=== PATIENT | female | born 1940 | race Native Hawaiian/Other Pacific Islander ===

== ENCOUNTER 2024-03-27 08:27 | Outpatient (RCR) | payer MEDICARE, SELFPAY | END 2024-04-08 23:59 | disposition home or self-care (01) | LOC: SCTC 08:27 | PROVIDERS: PCP Family Medicine; Referring Provider Family Medicine; Visit Provider Nurse Practitioner Family | DX: C56.2 Malignant neoplasm of left ovary (principal); M81.0 Age-related osteoporosis without current pathological fracture; R10.10 Upper abdominal pain, unspecified | CPT/HCPCS: 99212; G0463 ==

== ENCOUNTER → 2024-04-21 | Outpatient (CLI) | payer MEDICARE, SELFPAY ==
--- NOTE | 2024-04-21 11:00 | XR_ITS ---
Examination: CT abdomen and pelvis without contrast. Coronal 3-D reconstructions. Sagittal 2-D reconstructions. Date and time of exam:April 21, 2024 1055 hours Comparison March 09, 2018 INDICATIONS: Intermittent left-sided abdominal pain beginning several weeks ago CTDI: vol (mGy): 8.33 DLP: (mGycm): 351 Technique: Axial images of the abdomen have been obtained, 3 mm slice thickness Intravenous contrast material has not been administered. Low dose protocols were performed. One or more of the following dose reduction techniques were used; automated exposure control, adjustment of the mA and/or KV according to patient size, use of iterative reconstruction technique. 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
== END | disposition home or self-care (01) ==
PROVIDERS: PCP Family Medicine; Referring Provider Nurse Practitioner Family; Visit Provider Nurse Practitioner Family
DX: N28.89 Other specified disorders of kidney and ureter (principal); K59.00 Constipation, unspecified; G95.20 Unspecified cord compression; C56.2 Malignant neoplasm of left ovary
CPT/HCPCS: 74176

== ENCOUNTER 2024-04-26 10:39 | Outpatient (RCR) | payer MEDICARE, SELFPAY | END 2024-05-09 23:59 | disposition home or self-care (01) | LOC: SCTC 10:39 | PROVIDERS: PCP Family Medicine; Referring Provider Family Medicine; Visit Provider Nurse Practitioner Family | DX: Z08 Encounter for follow-up examination after completed treatment for malignant neoplasm (principal); Z85.43 Personal history of malignant neoplasm of ovary; Z90.722 Acquired absence of ovaries, bilateral; Z90.710 Acquired absence of both cervix and uterus; M81.0 Age-related osteoporosis without current pathological fracture | CPT/HCPCS: 99212; G0463 ==

== ENCOUNTER 2024-07-28 03:52 | Emergency (ER) | payer MEDICARE, SELFPAY ==
[2024-07-28] VITALS (7 sets, daily range): BP systolic 133–205; BP diastolic 58–93; PULSE 50–70; RESP 17–20; TEMP 36.6–36.9; O2SAT 97–99; BMI 31.1
--- NOTE | 2024-07-28 03:53 | PD.EDNV ---
Nausea/Vomit./Diarrhea-RME/HPI General Chief complaint: Nausea/Vomiting/Diarrhea Stated complaint: VOMITING Time Seen by Provider: 07/28/24 04:00 Arrival date/time: 07/28/24 03:52 RME / HPI RME / HPI Narrative: This section includes all my notes and documentations, including HPI, PE, and ED course. Doug aBrba MD HPI: 84-year-old female here with abdominal pain and vomiting since last night. Had hysterectomy in the past. Was told she has hernia, uncertain about the location and details. No hematemesis or coffee-ground emesis. No rectal bleeding or tarry stools. No fever. No urinary symptoms. No other complaints. ROS: All negative except as documented in HPI. Physical Exam: General: Alert and oriented. In obvious pain. High BP noted. Eyes: Conjunctivae and lids clear. ENT: No nasal congestion. Neck: Supple. Heart: RRR. Lungs: No respiratory distress. Good air movement. No rhonchi, wheezing, rales. Abdomen: Soft with diffuse tenderness, difficult to localize. Decreased BS. No distention. No rebound or guarding. Legs: No clubbing, cyanosis, edema. Skin: Warm and dry. Neuro: Alert and oriented X 3. I reviewed all diagnostic test results. Blood tests and urine tests unremarkable. Abdominal CT pending. Treatment here included IV fluid and Zofran and morphine and clonidine. Some improvement noted. At 6 AM on 07/28/2024, the care of the patient was transferred to Dr Gaspar. Doug Barba MD Related Data Home Medications ?Medication ?Instructions ?Recorded ?Confirmed hydralazine 100 mg tablet 100 mg PO TID 05/19/19 08/15/21 labetalol 100 mg tablet 100 mg PO BID 05/19/19 08/15/21 losartan 50 mg tablet 50 mg PO QDAY 05/19/19 08/15/21 pioglitazone 30 mg tablet 30 mg PO QDAY 05/19/19 08/15/21 Previous Rx's ?Medication ?Instructions ?Recorded loratadine 10 mg capsule 10 mg PO QDAY PRN allergy symptoms 08/18/20 #30 caps prednisone 20 mg tablet See Taper PO QDAY #9 tabs 11/09/21 meloxicam 7.5 mg tablet 7.5 mg PO QDAY #10 tabs 01/12/22 Allergies Allergy/AdvReac Type Severity Reaction Status Date / Time No Known Allergies Allergy Verified 01/12/22 07:10 Review of Systems Review of Systems Systems Reviewed: All systems reviewed, normal except as documented Past Medical History Past Medical History NEUROLOGIC: Positive Neurological Disorders, Cerebrovascular Accident and Migraine; Negative Seizures CARDIAC: Positive Cardiac Disorders, Hypercholesterolemia and Hypertension; Negative Congestive Heart Failure RESPIRATORY: Negative Chronic Obstructive Pulmonary Disease (COPD) GASTROINTESTINAL: Negative Gastrointestinal Disorders GENITOURINARY: Negative Genitourinary Disorders or Renal Disease REPRODUCTIVE: Positive Breast Cancer and Previous Pregnancies MUSCULOSKELETAL: Positive Musculoskeletal Disorders and Arthritis ENT: Positive Cataracts ENDOCRINE: Positive Endocrine Disorders and Diabetes Mellitus Type 2; Negative Diabetes Mellitus Type 1 HEMATOLOGIC: Positive Anemia; Negative Blood Disorders OTHER HISTORY: Positive Hospitalization, Blood Transfusions, Blood Transfusion Reaction, Anesthesia Reactions, Chemotherapy, Cancer, Breast Cancer and Ovarian Cancer; Negative Autoimmune Disease, Shingles, Falls, Radiation Therapy, MRSA, Chicken Pox, Measles or Mumps Family History FAMILY HISTORY: Positive Family Cardiac Disorders, Family Cancer and Family Surgery; Negative Family Psychiatric Problems, Family Respiratory Disorders, Family Gastrointestinal Problems or Family Anesthesia Reaction Surgical History SURGICAL: Positive Abdominal Surgery, Joint Replacement and Hysterectomy; Negative Cardiac Surgery Social History SMOKING STATUS: Never smoker ED Exam Narrative Physical exam: As noted in HPI. Course Quality Measures none Orders Category Date Time Status Bedside COVID-19 Antigen Test NOW Care 07/28/24 03:55 Active Bedside Influenza A&B Antigen Test NOW Care 07/28/24 03:[address] Screening NOW Care 07/28/24 04:01 Active Saline [Insert IV] NOW Care 07/28/24 03:55 Active Straight [In and Out Catheter] X1 Care 07/28/24 03:[address] abdomen pelvis w con Stat Exams 07/28/24 04:01 Ordered Amylase Stat Lab 07/28/24 04:10 Results BMP [Basic Metabolic Panel] Stat Lab 07/28/24 04:10 Results CBC Stat Lab 07/28/24 04:10 Completed Free T4 (Free Thyroxine) Stat Lab 07/28/24 04:10 Results Lactate (Lactic Acid) Stat Lab 07/28/24 04:10 Completed Lipase Stat Lab 07/28/24 04:10 Results Liver Panel Stat Lab 07/28/24 04:10 Results Magnesium Stat Lab 07/28/24 04:10 Results TSH [Thyroid Stimulating Hormone] Stat Lab 07/28/24 04:10 Results UA, C/S IF [Urinalysis, C/S if Indicated] Stat Lab 07/28/24 04:35 Completed Morphine Inj Med 07/28/24 04:00 Discontinued 4 mg IVP X1 ONE Ondansetron Inj [Zofran Inj] Med 07/28/24 04:00 Discontinued 4 mg IV X1 ONE Sodium Chloride 0.9% 1000 ml [Ns] 1,000 ml Med 07/28/24 04:00 Discontinued IV 999 mls/hr cloNIDine HCL [Catapres] Med 07/28/24 04:29 Discontinued 0.3 mg PO X1 ONE Vital Signs Vital signs: Vital Signs Temperature 98.3 F 07/28/24 04:02 Pulse Rate 68 07/28/24 04:02 Respiratory Rate 18 07/28/24 04:02 Blood Pressure 196/93 H 07/28/24 04:02 Pulse Oximetry (%) 98 07/28/24 04:02 Oxygen Delivery Method Room Air 07/28/24 04:02 Nausea/Vomiting/Diarrhea Patient data External records reviewed:: [facility] previous records (Per chart review, patient was seen here on 01/12/22 for pain in the right calf.) Clinical information provided by:: patient and family Social determinants that could affect healthcare access:: none Patient has the following chronic illnesses:: HTN, HLD, DMII How is presenting disease/condition affected by chronic disease/condition?: uneffected by Evaluation data The following diagnostics were reviewed and interpreted by me:: lab results and radiology exam(s) Lab and/or radiology exams considered but not ordered:: none Interpretation Summary: Abdominal CT pending Medications / Prescriptions Medications / Prescriptions considered but not ordered:: none Medication administrations:: Medication Administration History Discontinued Medications Clonidine (Clonidine Hcl 0.1 Mg Tablet) 0.3 mg PO X1 ONE Stop: 07/28/24 04:30 Last Admin: 07/28/24 04:54 Dose: 0.3 mg Documented By: EE Sodium Chloride (Ns) 1,000 mls @ 999 mls/hr IV .Q1H1M ONE Stop: 07/28/24 05:00 Last Admin: 07/28/24 04:22 Dose: 999 mls/hr Documented By: EE Morphine Sulfate (Morphine Sulf Inj 10 Mg/Ml Vial) 4 mg IVP X1 ONE Stop: 07/28/24 04:01 Last Admin: 07/28/24 04:22 Dose: 4 mg Documented By: ISHMAEL Ondansetron HCl (Ondansetron Inj 2 Mg/Ml Inj 2 Ml) 4 mg IV X1 ONE; Protocol Stop: 07/28/24 04:01 Last Admin: 07/28/24 04:22 Dose: 4 mg Documented By: ISHMAEL IV fluid and Zofran and morphine and clonidine Consultations Consultation(s) initiated? (list below): No Diagnosis Nausea Differential Diagnosis: traveler's diarrhea, food poisoning, gastroenteritis, drug-induced nausea and vomiting, dehydration and other (Gastritis, GERD, PUD, biliary colic, SBO) Most likely diagnosis given after review of the tests above:: Diagnostics pending Admission Indicated Admission indicated?: not indicated Explain why admission is indicated or not indicated:: Diagnostics pending Admission Request Was there a request for admission?: No Disposition Plan Disposition Plan: other (specify) (Care of the patient was transferred to Dr Gaspar) Discharge Plan Prescriptions/Referrals Prescriptions/Med Rec: No Action losartan 50 mg Tablet 50 mg PO QDAY hydralazine 100 mg Tablet 100 mg PO TID labetalol 100 mg Tablet 100 mg PO BID pioglitazone 30 mg Tablet 30 mg PO QDAY loratadine 10 mg capsule 10 mg PO QDAY PRN (Reason: allergy symptoms) Qty: 30 0RF prednisone 20 mg tablet See Taper PO QDAY Qty: 9 0RF Taper: Prednisone Taper 20 mg DAILY for 2 Days and 0 Hour 10 mg DAILY for 2 Days and 0 Hour 5 mg DAILY for 7 Days and 0 Hour meloxicam 7.5 mg tablet 7.5 mg PO QDAY Qty: 10 0RF Problem List Clinical Impression: Abdominal pain Patient/Caregiver Discharge Instructions Print Language: Armenian
--- NOTE | 2024-07-28 04:01 | XR_ITS ---
Examination: CT abdomen with intravenous contrast CT pelvis with intravenous contrast 2-D coronal reconstructions 2-D sagittal reconstructions Date and time of exam:July 28, 2024 at 0607 hours Comparison April 21, 2024 INDICATIONS: Severe left-sided abdominal pain and vomiting today. CTDI: vol (mGy) 7.05 DLP: (mGycm) 335 Technique: Multiple axial sections of the abdomen and pelvis have been obtained. 64 slice high-resolution scanner used. 3 mm axial sections have been obtained, post intravenous injection 60 cc Isovue 370 2-D sagittal, coronal reconstructions obtained. Low dose protocols were performed. One or more of the following dose reduction techniques were used; automated exposure control, adjustment of the mA and/or KV according to patient size, use of iterative reconstruction technique. Findings: Moderate vascular congestion Liver is mildly irregular in contour No gallstones Spleen is not enlarged Gastric mucosa is thickened No pancreatic mass Supraumbilical hernia containing fat, axial image 63, measuring 26 mm Heavy abdominal aortic calcification no aneurysmal dilatation 12 mm umbilical hernia defect No bowel obstruction Normal appendix No diverticulitis Sutures in the rectal region Intact urinary bladder Severe osteopenia Severe chronic compression T12 vertebral body Advanced narrowing L4-L5 disc Advanced narrowing of the hip joints Bilateral inguinal hernias, the right inguinal hernia containing small bowel but no incarcerated bowel IMPRESSION: Moderate vascular congestion, suggest PA chest follow up Primary hepatocellular disease Gastritis pattern Supraumbilical fat-containing hernia 26 mm 12 mm fat-containing umbilical hernia Right inguinal hernia containing small bowel but no incarcerated bowel Normal appendix No bowel obstruction
[2024-07-28 04:20] LABS: Lactate (Lactic Acid) 0.9 mMol/L (0.4-2.0)
[2024-07-28] MEDS: ONDANSETRON INJ 2 MG/ML INJ 2 ML 4 MG IV (04:22)
[2024-07-28] MEDS: MORPHINE SULF INJ 10 MG/ML VIAL 4 MG IVP (04:22)
[2024-07-28] MEDS: SODIUM CHLORIDE 0.9% 1000 ML 1,000 ML 999 ML IV (04:22)
[2024-07-28 04:23] LABS: Basophils # (Auto) 0.1 Thou/mm3 (0.0-0.2); Basophils % (Auto) 1 % (0-2.5); Eosinophils # (Auto) 0.8 Thou/mm3 (0.0-0.5); Eosinophils % (Auto) 11 % (0-10); Hematocrit 35.3 % (36.0-46.0); Hemoglobin 11.8 g/dL (12.0-16.0); Immature Granulocytes % (Auto) 0 % (0-0); Immature Granulocytes Auto 0.02 Thou/mm3 (0.00-0.00); Lymphocytes # (Auto) 2.2 Thou/mm3 (1.0-4.8); Lymphocytes % (Auto) 31 % (10-50); Mean Corpuscular HGB Conc 33.4 g/dl (31.0-37.0); Mean Corpuscular Hemoglobin 28.7 pg (25.0-35.0); Mean Corpuscular Volume 86 fL (80-100); Monocytes # (Auto) 0.5 Thou/mm3 (0.0-0.8); Monocytes % (Auto) 7 % (0-12); Neutrophils # (Auto) 3.7 Thou/mm3 (1.8-7.7); Neutrophils % (Auto) 51 % (37-80); Nucleated Red Blood Cell % 0 /100 WBC (0); Platelet Count 193 Thou/mm3 (140-440); RDW Standard Deviation 46.1 fL (36.4-46.3); Red Blood Count 4.11 Miln/mm3 (4.00-5.20); White Blood Count 7.3 Thou/mm3 (3.6-11.0)
[2024-07-28 04:40] LABS: Alanine Aminotransferase 19 U/L (10-49); Alkaline Phosphatase 45 U/L (46-116); Amylase 185 U/L (30-118); Anion Gap 8 (7-16); Aspartate Amino Transferase 30 U/L (0-34); BUN/Creatinine Ratio 15 Ratio (12-20); Bilirubin,Direct < 0.1 mg/dL (0.0-0.3); Bilirubin,Total 0.4 mg/dL (0.3-1.2); Blood Urea Nitrogen 24 mg/dL (9-23); Calcium 9.3 mg/dL (8.3-10.6); Carbon Dioxide 27.3 mMol/L (20.0-31.0); Chloride 104 mMol/L (98-107); Creatinine (Component) 1.6 mg/dL (0.6-1.3); Estimated Creatinine Clearance 24.7 mL/min (>60); Glucose 128 mg/dL (74-106); Lipase 28 U/L (12-53); Magnesium 2.1 mg/dL (1.6-2.6); Osmolality,Calculated 283 (275-295); Potassium 4.3 mMol/L (3.4-5.1); Sodium 139 mMol/L (136-145); Total Protein 6.5 gm/dL (5.7-8.2); eGFR 32 See Note
[2024-07-28 04:54] LABS: Collection Type, Urine Clean Catch
[2024-07-28] MEDS: cloNIDine HCL 0.1 MG TABLET 0.3 MG PO (04:54)
[2024-07-28 05:03] LABS: Bilirubin,Urine Negative (Negative); Blood,Urine Negative (Negative); Clarity,Urine Clear (Clear/Hazy); Color,Urine Lt-Yellow (Lt Yel-Yel); Culture Indicated,Urine Not Indicated; Glucose, Urine Negative (Negative); Ketones,Urine Negative (Negative); Leukocyte Esterase,Urine Negative (Negative); Nitrite,Urine Negative (Negative); Protein,Urine 2+ (Neg - Trace); RBC,Urine 1 /hpf (0-3); Specific Gravity,Urine 1.017 (1.001-1.035); Squamous Epithelial Cell,Urine < 1 /hpf (0-5); Urobilinogen,Urine Negative mg/dL (0.0-1.0); WBC,Urine 2 /hpf (0-5)
[2024-07-28 05:25] LABS: Free T4 (Free Thyroxine) 1.38 ng/dL (0.89-1.76)
--- NOTE | 2024-07-28 05:59 | PD.EDADDENDU ---
Emergency Room Addendum Addendum Narrative: 0600: Care assumed from Dr. Barba, the previous shift emergency physician. Past medical, surgical, social and family history reviewed. Vitals and home medications reviewed. I will assume the care of the patient at this time. Please refer to the emergency department record for history and examination from initial visit.? Physical exam by me shows patient under no acute distress at this time. 1000: Patient remains clinically stable throughout the emergency department visit. Re-assessment at the time of disposition demonstrates that the patient is in no acute distress. We reviewed all the results, analysis, and treatment plans. Patient is amenable to discharge. Strict return precautions were outlined. Patient was discharged in stable condition. Diagnoses: Abdominal pain, umbilical hernia RADIOLOGY Procedure(s): CT abdomen pelvis w con Accession Number(s): [id number] cc: Cristopher Sherman MD; Doug Barba MD; Giorgi Brown MD~ Examination: CT abdomen with intravenous contrast CT pelvis with intravenous contrast 2-D coronal reconstructions 2-D sagittal reconstructions Date and time of exam:July 28, 2024 at 0607 hours Comparison April 21, 2024 INDICATIONS: Severe left-sided abdominal pain and vomiting today. CTDI: vol (mGy) 7.05 DLP: (mGycm) 335 Technique: Multiple axial sections of the abdomen and pelvis have been obtained. 64 slice high-resolution scanner used. 3 mm axial sections have been obtained, post intravenous injection 60 cc Isovue 370 2-D sagittal, coronal reconstructions obtained. Low dose protocols were performed. One or more of the following dose reduction techniques were used; automated exposure control, adjustment of the mA and/or KV according to patient size, use of iterative reconstruction technique. Findings: Moderate vascular congestion Liver is mildly irregular in contour No gallstones Spleen is not enlarged Gastric mucosa is thickened No pancreatic mass Supraumbilical hernia containing fat, axial image 63, measuring 26 mm Heavy abdominal aortic calcification no aneurysmal dilatation 12 mm umbilical hernia defect No bowel obstruction Normal appendix No diverticulitis Sutures in the rectal region Intact urinary bladder Severe osteopenia Severe chronic compression T12 vertebral body Advanced narrowing L4-L5 disc Advanced narrowing of the hip joints Bilateral inguinal hernias, the right inguinal hernia containing small bowel but no incarcerated bowel IMPRESSION: Moderate vascular congestion, suggest PA chest follow up Primary hepatocellular disease Gastritis pattern Supraumbilical fat-containing hernia 26 mm 12 mm fat-containing umbilical hernia Right inguinal hernia containing small bowel but no incarcerated bowel Normal appendix No bowel obstruction Dictated By: Giorgi Brown MD
--- NOTE | 2024-07-28 07:20 | PC.NURSE ---
Received report from Nasrin NORTON and assumed care of patient.
--- NOTE | 2024-07-28 07:51 | PC.NURSE ---
Answered patient call light. Patient requested sip of water for dry mouth. Complied with patients request and gave two sips of water which patient states she was fine with. Patient states current pain /10. ER provider informed and awaiting further orders.
== END 2024-07-28 10:25 | disposition home or self-care (01) ==
PROVIDERS: Emergency Medicine; Emergency Provider Emergency Medicine; PCP Family Medicine
DX: K42.9 Umbilical hernia without obstruction or gangrene (principal); R09.89 Other specified symptoms and signs involving the circulatory and respiratory systems; K76.9 Liver disease, unspecified; K40.90 Unilateral inguinal hernia, without obstruction or gangrene, not specified as recurrent
CPT/HCPCS: 36415; 74177; 80048; 80076; 81001; 82150; 83605; 83690; 83735; 84439; 84443; 85025; 87400; 87811; 96361; 96374; 96375; 99285; A4649; J2270; J2405; J7030; Q9967; A9270

== ENCOUNTER → 2024-10-24 | Outpatient (CLI) | payer MEDICARE, SELFPAY ==
[2024-10-24 13:59] LABS: Basophils # (Auto) 0.1 Thou/mm3 (0.0-0.2); Basophils % (Auto) 1 % (0-2.5); Eosinophils # (Auto) 0.4 Thou/mm3 (0.0-0.5); Eosinophils % (Auto) 6 % (0-10); Hematocrit 35.1 % (36.0-46.0); Immature Granulocytes % (Auto) 0 % (0-0); Immature Granulocytes Auto 0.02 Thou/mm3 (0.00-0.00); Lymphocytes # (Auto) 2.1 Thou/mm3 (1.0-4.8); Lymphocytes % (Auto) 32 % (10-50); Mean Corpuscular HGB Conc 34.2 g/dl (31.0-37.0); Mean Corpuscular Hemoglobin 29.5 pg (25.0-35.0); Mean Corpuscular Volume 86 fL (80-100); Monocytes # (Auto) 0.5 Thou/mm3 (0.0-0.8); Monocytes % (Auto) 8 % (0-12); Neutrophils # (Auto) 3.3 Thou/mm3 (1.8-7.7); Neutrophils % (Auto) 52 % (37-80); Nucleated Red Blood Cell % 0 /100 WBC (0); Platelet Count 194 Thou/mm3 (140-440); RDW Standard Deviation 45.1 fL (36.4-46.3); Red Blood Count 4.07 Miln/mm3 (4.00-5.20); White Blood Count 6.3 Thou/mm3 (3.6-11.0)
[2024-10-24 14:19] LABS: Alanine Aminotransferase 20 U/L (10-49); Albumin, Serum 4.2 gm/dL (3.4-4.8); Albumin/Globulin Ratio 1.8 (1.2-2.2); Alkaline Phosphatase 53 U/L (46-116); Anion Gap 10 (7-16); Aspartate Amino Transferase 24 U/L (0-34); BUN/Creatinine Ratio 13 Ratio (12-20); Bilirubin,Total 0.2 mg/dL (0.3-1.2); Blood Urea Nitrogen 24 mg/dL (9-23); Calcium 10.1 mg/dL (8.3-10.6); Calcium (Corrected) 10.1 mg/dL (8.5-10.1); Carbon Dioxide 26.8 mMol/L (20.0-31.0); Chloride 104 mMol/L (98-107); Creatinine (Component) 1.8 mg/dL (0.6-1.3); Globulin 2.4 gm/dL (2.3-3.5); Glucose 158 mg/dL (74-106); Osmolality,Calculated 288 (275-295); Potassium 4.3 mMol/L (3.4-5.1); Sodium 141 mMol/L (136-145); Total Protein 6.6 gm/dL (5.7-8.2); eGFR 28 See Note
[2024-10-24 14:24] LABS: Carcinoembryonic Antigen 2.2 ng/mL (0.0-5.0)
== END | disposition home or self-care (01) ==
LOC: COPL 12:07 → SCTO 12:22
PROVIDERS: PCP Family Medicine; Referring Provider Nurse Practitioner Family; Visit Provider Nurse Practitioner Family
DX: C56.2 Malignant neoplasm of left ovary (principal)
CPT/HCPCS: 36415; 80053; 82378; 85025; 86304

== ENCOUNTER 2024-10-25 08:54 | Outpatient (RCR) | payer MEDICARE, SELFPAY | END 2024-11-06 23:59 | disposition home or self-care (01) | LOC: SCTC 08:54 | PROVIDERS: PCP Family Medicine; Referring Provider Family Medicine; Visit Provider Nurse Practitioner Family | DX: C56.2 Malignant neoplasm of left ovary (principal); K42.9 Umbilical hernia without obstruction or gangrene; K40.90 Unilateral inguinal hernia, without obstruction or gangrene, not specified as recurrent; R05.3 Chronic cough; M81.0 Age-related osteoporosis without current pathological fracture | CPT/HCPCS: 99212; G0463 ==

== ENCOUNTER → 2024-11-14 | Outpatient (CLI) | payer MEDICARE, SELFPAY ==
--- NOTE | 2024-11-14 09:40 | XR_ITS ---
Examination: PA lateral chest 2 views TECHNIQUE: Upright PA lateral chest 2 views Date and time: November 14, 2024 1013 hours INDICATIONS: Diagnosis malignant neoplasm left ovary. FINDINGS: Mild enlargement cardiac contour Prominent vascular congestion. No lobar pneumonia. Ectatic calcified aortic arch. Prominent osteopenia IMPRESSION: Suspicious for mild chronic heart failure
== END | disposition home or self-care (01) ==
PROVIDERS: PCP Family Medicine; Referring Provider Nurse Practitioner Family; Visit Provider Nurse Practitioner Family
DX: I51.89 Other ill-defined heart diseases (principal); C56.2 Malignant neoplasm of left ovary
CPT/HCPCS: 71046

== ENCOUNTER → 2024-11-28 | Outpatient (CLI) | payer MEDICARE, SELFPAY ==
[2024-11-28 09:53] LABS: Quantiferon-TB* See Sep Rpt
[2024-11-28 12:00] LABS: Cocci Serology, IgM Negative (Negative)
[2024-11-28 16:01] LABS: Basophils # (Auto) 0.1 Thou/mm3 (0.0-0.2); Basophils % (Auto) 1 % (0-2.5); Eosinophils # (Auto) 0.3 Thou/mm3 (0.0-0.5); Eosinophils % (Auto) 4 % (0-10); Hematocrit 35.4 % (36.0-46.0); Hemoglobin 12.1 g/dL (12.0-16.0); Immature Granulocytes Auto 0.01 Thou/mm3 (0.00-0.00); Lymphocytes # (Auto) 2.3 Thou/mm3 (1.0-4.8); Lymphocytes % (Auto) 35 % (10-50); Mean Corpuscular HGB Conc 34.2 g/dl (31.0-37.0); Mean Corpuscular Hemoglobin 29.2 pg (25.0-35.0); Mean Corpuscular Volume 86 fL (80-100); Monocytes # (Auto) 0.5 Thou/mm3 (0.0-0.8); Monocytes % (Auto) 7 % (0-12); Neutrophils # (Auto) 3.6 Thou/mm3 (1.8-7.7); Neutrophils % (Auto) 54 % (37-80); Nucleated Red Blood Cell # 0.00 Thou/mm3 (0.00-0.00); Nucleated Red Blood Cell % 0 /100 WBC (0); Platelet Count 199 Thou/mm3 (140-440); RDW Standard Deviation 44.2 fL (36.4-46.3); Red Blood Count 4.14 Miln/mm3 (4.00-5.20); White Blood Count 6.7 Thou/mm3 (3.6-11.0)
[2024-11-28 16:26] LABS: Alanine Aminotransferase 24 U/L (10-49); Albumin, Serum 4.2 gm/dL (3.4-4.8); Albumin/Globulin Ratio 1.6 (1.2-2.2); Alkaline Phosphatase 46 U/L (46-116); Anion Gap 9 (7-16); Aspartate Amino Transferase 29 U/L (0-34); BUN/Creatinine Ratio 14 Ratio (12-20); Bilirubin,Total 0.4 mg/dL (0.3-1.2); Blood Urea Nitrogen 26 mg/dL (9-23); Calcium 10.2 mg/dL (8.3-10.6); Calcium (Corrected) 10.2 mg/dL (8.5-10.1); Carbon Dioxide 26.5 mMol/L (20.0-31.0); Chloride 106 mMol/L (98-107); Creatinine (Component) 1.8 mg/dL (0.6-1.3); Globulin 2.7 gm/dL (2.3-3.5); Glucose 144 mg/dL (74-106); Osmolality,Calculated 288 (275-295); Potassium 4.2 mMol/L (3.4-5.1); Sodium 141 mMol/L (136-145); Total Protein 6.9 gm/dL (5.7-8.2); eGFR 28 See Note
[2024-11-29 11:44] LABS: Cocci Serology, IgG Negative (Negative)
== END | disposition home or self-care (01) ==
PROVIDERS: PCP Family Medicine; Referring Provider Nurse Practitioner Family; Visit Provider Nurse Practitioner Family
DX: C56.2 Malignant neoplasm of left ovary (principal)
CPT/HCPCS: 36415; 80053; 85025; 86331; 86480; 86635

== ENCOUNTER → 2024-11-29 | Outpatient (CLI) | payer MEDICARE, SELFPAY ==
--- NOTE | 2024-11-29 10:00 | XR_ITS ---
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 Images obtained post intravenous injection Isovue 370 60 cc. 2-D sagittal and coronal reconstructions. Low dose protocols were performed. One or more of the following dose reduction techniques were used; automated exposure control, adjustment of the mA and/or KV according to patient size, use of iterative reconstruction technique. Findings: Bilateral multiple thyroid nodules subcentimeter No thoracic aortic aneurysm dilatation or dissection Pulmonary artery opacification is poor No paratracheal tracheobronchial or bronchopulmonary adenopathy No pneumonia, pulmonary edema pleural disease or noncalcified pulmonary nodules No visualized liver or splenic lesion No gallstones No pancreatic or adrenal mass. No hydronephrosis Heavy abdominal aortic calcification is especially common iliac arteries No abdominal or pelvic lymphadenopathy No pericecal inflammatory change Urinary bladder intact Severe osteopenia with chronic compression T12 IMPRESSION: No interval metastatic disease Consider thyroid sonography to assess multiple thyroid nodules
== END | disposition home or self-care (01) ==
PROVIDERS: Referring Provider Nurse Practitioner Family; Visit Provider Nurse Practitioner Family
DX: E04.2 Nontoxic multinodular goiter (principal); C56.2 Malignant neoplasm of left ovary
CPT/HCPCS: 71270; 74178; A4649; Q9967

== ENCOUNTER 2024-12-20 11:32 | Outpatient (RCR) | payer MEDICARE, SELFPAY | END 2025-01-07 23:59 | disposition home or self-care (01) | LOC: SCTC 11:32 | PROVIDERS: PCP Family Medicine; Referring Provider Family Medicine; Visit Provider Nurse Practitioner Family | DX: Z08 Encounter for follow-up examination after completed treatment for malignant neoplasm (principal); Z85.43 Personal history of malignant neoplasm of ovary; Z90.722 Acquired absence of ovaries, bilateral; M81.0 Age-related osteoporosis without current pathological fracture; N18.9 Chronic kidney disease, unspecified; E04.2 Nontoxic multinodular goiter | CPT/HCPCS: 99212; G0463 ==

== ENCOUNTER → 2025-01-11 | Outpatient (CLI) | payer MEDICARE, SELFPAY ==
--- NOTE | 2025-01-11 15:00 | XR_ITS ---
Examination: Thyroid sonography complete TECHNIQUE: Grayscale sonographic images thyroid lobes Date and time: January 11, 2025 1449 hours INDICATIONS: Multiple thyroid nodules on CT chest study November 29, 2024. FINDINGS: Right thyroid 4.7 cm Multiple thyroid cysts Upper pole thyroid nodule 7 x 5 mm Midpole thyroid nodule 10 x 9 mm, 14 x 13 mm Left thyroid 4.5 cm Multiple thyroid cysts Upper pole solid nodule 6 x 5 mm, 8 x 7 mm, Midpole nodule 12 x 8 mm IMPRESSION: Multiple thyroid nodules as above Consider ultrasound-guided fine-needle aspiration of the vascular largest nodule in the mid right thyroid lobe, 14 x 10 x 13 mm
== END | disposition home or self-care (01) ==
PROVIDERS: PCP Nurse Practitioner Family; Referring Provider Nurse Practitioner Family; Visit Provider Nurse Practitioner Family
DX: E04.2 Nontoxic multinodular goiter (principal); C56.2 Malignant neoplasm of left ovary
CPT/HCPCS: 76536

== ENCOUNTER 2025-03-28 05:37 | Emergency (ER) | payer MEDICARE, MEDICAID, SELFPAY ==
[2025-03-28] VITALS (7 sets, daily range): BP systolic 158–174; BP diastolic 71–82; PULSE 75–91; RESP 17–21; TEMP 37.3–38.6; O2SAT 95–100; BMI 21.8
--- NOTE | 2025-03-28 05:41 | XR_ITS ---
EXAMINATION: AP chest single view TECHNIQUE: AP portable upright chest single view Date and time: March 28, 2025, 0556 hours, comparison November 14, 2024 INDICATIONS: Chest pain today. FINDINGS: Mild to moderate CHF Mild to moderate enlargement cardiac contour, ectatic thoracic aorta, perihilar edema Consider superimposed diffuse pneumonia in the right lung Prominent osteopenia Suspicious for 14 mm pulmonary nodule right upper lobe Severe osteopenia IMPRESSION: Mild to moderate CHF Suspicious for diffuse superimposed pneumonia in the right lung Consider repeat CT chest without contrast follow-up to exclude 14 mm pulmonary nodule in the right upper lobe
--- NOTE | 2025-03-28 05:42 | EKG_ITS ---
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
--- NOTE | 2025-03-28 05:42 | PD.EDRME ---
Rapid Medical Screening Exam RME Arrival date/time: 03/28/25 05:37 Chief Complaint: Shortness of Breath/Dyspnea RME Narrative: 84-year-old female with a 1 day history of cough and shortness of breath as well as feeling weak. She has a history of coronary artery disease as well as hypertension and diabetes. Exam: Generally patient is alert slightly ill-appearing elderly female, heart regular rate and rhythm, lungs clear to auscultation equal bilaterally, extremities show no edema Clinical Impression: Pneumonia versus CHF versus acute coronary syndrome versus electrolyte abnormality
[2025-03-28 06:03] LABS: Basophils # (Auto) 0.1 Thou/mm3 (0.0-0.2); Basophils % (Auto) 1 % (0-2.5); Eosinophils # (Auto) 0.1 Thou/mm3 (0.0-0.5); Eosinophils % (Auto) 1 % (0-10); Hematocrit 34.1 % (36.0-46.0); Hemoglobin 11.4 g/dL (12.0-16.0); Immature Granulocytes Auto 0.08 Thou/mm3 (0.00-0.00); Lymphocytes # (Auto) 1.3 Thou/mm3 (1.0-4.8); Lymphocytes % (Auto) 11 % (10-50); Mean Corpuscular HGB Conc 33.4 g/dl (31.0-37.0); Mean Corpuscular Hemoglobin 29.2 pg (25.0-35.0); Mean Corpuscular Volume 87 fL (80-100); Monocytes # (Auto) 0.6 Thou/mm3 (0.0-0.8); Monocytes % (Auto) 6 % (0-12); Neutrophils # (Auto) 9.3 Thou/mm3 (1.8-7.7); Neutrophils % (Auto) 81 % (37-80); Nucleated Red Blood Cell # 0.00 Thou/mm3 (0.00-0.00); Nucleated Red Blood Cell % 0 /100 WBC (0); Platelet Count 193 Thou/mm3 (140-440); RDW Standard Deviation 47.6 fL (36.4-46.3); Red Blood Count 3.91 Miln/mm3 (4.00-5.20); White Blood Count 11.5 Thou/mm3 (3.6-11.0)
[2025-03-28 06:24] LABS: Alanine Aminotransferase 17 U/L (10-49); Albumin, Serum 4.3 gm/dL (3.4-4.8); Albumin/Globulin Ratio 2.0 (1.2-2.2); Alkaline Phosphatase 45 U/L (46-116); Anion Gap 12 (7-16); Aspartate Amino Transferase 24 U/L (0-34); BUN/Creatinine Ratio 16 Ratio (12-20); Bilirubin,Total 0.9 mg/dL (0.3-1.2); Blood Urea Nitrogen 28 mg/dL (9-23); Calcium 9.5 mg/dL (8.3-10.6); Calcium (Corrected) 9.5 mg/dL (8.5-10.1); Carbon Dioxide 23.1 mMol/L (20.0-31.0); Chloride 108 mMol/L (98-107); Creatinine (Component) 1.8 mg/dL (0.6-1.3); Estimated Creatinine Clearance 22.2 mL/min (>60); Globulin 2.2 gm/dL (2.3-3.5); Glucose 225 mg/dL (74-106); Osmolality,Calculated 297 (275-295); Potassium 4.0 mMol/L (3.4-5.1); Sodium 143 mMol/L (136-145); Total Protein 6.5 gm/dL (5.7-8.2); Troponin I 0.031 ng/mL (0.0-0.045); eGFR 28 See Note
[2025-03-28 06:29] LABS: Collection Type, Urine Clean Catch; Squamous Epithelial Cell,Urine 0 /hpf (0-5)
--- NOTE | 2025-03-28 06:33 | EDNOTE_ITS ---
<Statement entered by Farrah Patel MD - 03/28/25 12:59> As co-signing physician, I evaluated the patient myself as well. I concur with the plan and care as documented by the resident physician ED SOB =RME/HPI General Chief Complaint: Shortness of Breath/Dyspnea Stated Complaint: FLU LIKE SYMPTOMS Time Seen by Provider: 03/28/25 06:04 Arrival date/time: 03/28/25 05:37 RME / HPI RME / HPI Narrative: CC: Cough Patient is a 84 year old female with a past medical history of hypertension, Hyperlipidemia, GERD, history of hernia, and history of metastatic ovarian cancer, who presented to the emergency room with a chief complain of worsening cough over one day that woke her up from sleep that is dry and causing shortness of breath. Denied any history of hemoptysis. Denied any sick contacts at home. Denied history of COPD/cigarettes Denied any diarrhea. Denied chills at home. Patient currently lives with her son. 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 Related Data Home Medications ?Medication ?Instructions ?Recorded ?Confirmed hydralazine 100 mg tablet 100 mg PO BID 05/19/1903/28 labetalol 100 mg tablet 100 mg PO BID 05/19/1903/28 Previous Rx's ?Medication ?Instructions ?Recorded ondansetron 4 mg disintegrating 4 mg PO Q8H PRN nausea and 07/28/24 tablet vomiting #10 tabs pantoprazole 40 mg tablet,delayed 40 mg PO QDAY #20 ta bs 07/28/24 release (Protonix) albuterol sulfate 90 mcg/actuation 2 inh inhalation Q6 H PRN shortness 03/28/25 breath activated powder inhaler of breath 1 month #1 e a doxycycline hyclate 100 mg capsule 100 mg PO BID Pneum onia 5 days #10 03/28/25 caps inhalational spacing device (Henry #1 ea 03/28/25 Aerosol Hettinger Enhancer spacer) Allergies Allergy/AdvReac Type Severity Reaction Status Date / Time No Known Allergies Allergy Verified 01/12/22 07:10 Review of Systems Review of Systems Narrative Review of Systems: General appearance: NO weight change, NO fatigue, NO weakness, NO fever, NO chills, NO night sweats, Yes cough Skin: NO rash, NO itching, NO sores, NO moles HEENT: NO Trauma, NO nausea, NO vomiting, NO visual changes, NO blurry vision, NO double vision, NO tinnitus, NO vertigo, NO ear discharge, NO rhinorrhea, NO stuffiness, NO sneezing, NO allergy, NO epistaxis. NO Hoarseness, NO sore th roat, NO swollen neck. Cardiac: NO Palpitations, NO dyspnea on exertion, NO orthopnea, NO paroxysmal nocturnal dyspnea, NO edema Respiratory: Yes Shortness of Breath, NO Wheezing, NO Cough, NO Sputum, NO hemoptysis GI:NO appetite, NO nausea, NO vomiting, NO dysphagia, NO changes in bowel freque ncy, NO stool color, NO diarrhea, NO constipation, NO hemetemesis, NO hemorrhoids, NO melena, NO hematechezia, NO abdominal pain, NO jaundice Renal: NO frequency, NO hesitancy, NO urgency, NO hematuria, NO nocturia, NO incontinence MSK: NO muscle weakness, NO gout, NO arthritis, NO muscle stiffness Neuro: NO headaches, NO tremors, NO weakness, NO paralysis, NO seizures, NO loss of consciousness, NO numbness. Hem: NO anemia, NO easy bruising/bleeding, NO petechiae, NO purpura Endo: NO heat/cold intolerance, NO excessive sweating, NO polyuria, NO polydipsia, NO polyphagia, NO thyroid problems, NO diabetes Pysch: NO mood, NO anxiety, NO depression Course Quality Measures none Orders Category Date Time Status Bedside COVID-19 Antigen Test NOW Care 03/28/25 05:42 Active Continuous Pulse Oximetry STAT Care 03/28/25 06:31 Completed EKG (ED ONLY) *Do not use* NOW Care 03/28/25 05:42 Completed EKG (ED Only) Stat Exams 03/28/25 05:42 Draft XR chest 1V portable Stat Exams 03/28/25 05:41 Completed BNP [B-Type Natriuretic Peptide] Stat Lab 03/28/25 05:57 Completed Blood Culture (Lab) Stat Lab 03/28/25 06:45 Received CBC Stat Lab 03/28/25 05:57 Completed CMP [Comprehensive Metabolic Panel] Stat Lab 03/28/25 05:57 Completed Cocci Serology IgM with reflex to IgG [Cocci Serology, Lab 03/28/25 06:39 Received Unk History] Stat FLU A&B [Influenza A & B Rapid Panel] Stat Lab 03/28/25 06:25 Completed Lactate (Lactic Acid) Stat Lab 03/28/25 06:39 Completed Procalcitonin Stat Lab 03/28/25 06:39 Completed RSV [Respiratory Syncytial Virus Ag] Stat Lab 03/28/25 05:58 Completed Troponin I Stat Lab 03/28/25 05:57 Completed Urinalysis, C/S if Indicated Stat Lab 03/28/25 06:20 Completed Acetaminophen Tab [Tylenol Tab] Med 03/28/25 06:31 Discontinued 325 mg PO X1 ONE Albuterol/Ipratr Rt Kassi [Duoneb Rt Kassi] Med 03/28/25 07:09 Discontinued 3 ml INH X1 ONE Doxycycline Inj [Vibramycin Inj] 100 mg Med 03/28/25 06:23 Discontinued Sodium Chloride 0.9% (Pop) [NS 0.9% mini bag] 100 ml IV X1 cefTRIAXone/D5w 1gm IV premix [Rocephin/D5w 1gm IV Med 03/28/25 06:23 Discontinued premix] 1 gm in 50 ml IV X1 Vital Signs Vital signs: Vital Signs Temperature 101.4 F H 03/28/25 05:39 Pulse Rate 85 03/28/25 05:39 Respiratory Rate 17 03/28/25 05:39 Blood Pressure 165/71 H 03/28/25 05:39 Pulse Oximetry (%) 96 03/28/25 05:39 Oxygen Delivery Method Room Air 03/28/25 05:39 Shortness of Breath / Dyspnea Patient data External records reviewed:: [facility] previous records Clinical information provided by:: patient Social determinants that could affect healthcare access:: none Patient has the following chronic illnesses:: HTN HLD hx of hernia hx of ovarian cancer How is presenting disease/condition affected by chronic disease/condition?: uneffected by (by HTN HLD ) Evaluation data The following diagnostics were reviewed and interpreted by me:: lab results, radiology exam(s) and EKG tracing(s) Lab and/or radiology exams considered but not ordered:: None Interpretation Summary: Patient is a 84 year old female with a past medical history hypertension, hyperlipidemia, GERD, history of hernia, and history of metastatic ovarian cancer who presented to the emergency room with a chief complain of cough and shortness of breath that has been present since overnight on 03/28/2025. Patient's vitals on arrival noted for pyrexia of 101.4, non tachy, non t achypenic, saturating well on room air spO2 of 98%. Mild leukocytosis of 11.5 and anemia noted on CBC. CMP noted to have increase in BUN and Creatinine which was present on previous ER visits with Cr between 1.6-1.8, concern for CKD. Elevated BNP of 889 but no peripheral edema or jvd noted on physical exam. No crackles noted on physical exam. Chest x-ray noted for mild to moderate CHF. Superimposed pneuomina of right lung and 14 mm nodule on right pulmonary nodule. Patient diagnosed with pneumonia, likely viral given procalcitonin 0.09 with a lactic acid of 1.9. #Pneumonia #Pulmoanry Nodule, Follow up with CT outpatient - The patient's plan was discussed with attending Dr. Jorge Garcia MD PGY2 Internal Medicine Medications / Prescriptions Medications or Prescriptions considered but not ordered:: None Medication administrations:: Medication Administration History Discontinued Medications Acetaminophen (Acetaminophen 325 Mg Tablet) 325 mg PO X1 ONE Stop: 03/28/25 06:32 Last Admin: 03/28/25 06:45 Dose: 325 mg Documented By: GAMA Albuterol/Ipratropium (Albuterol/Ipratropium (Duoneb) Rt Kassi 3 Ml Nebu) 3 ml INH X1 ONE Stop: 03/28/25 07:10 Last Admin: 03/28/25 07:33 Dose: 3 ml Documented By: CAROLINE Ceftriaxone Sodium/Dextrose (Rocephin/D5w 1gm Iv Premix) 1 gm in 50 mls @ 100 mls/hr IV X1 ONE Stop: 03/28/25 06:52 Last Infusion: 03/28/25 07:00 Dose: Infused Documented By: Admin: 03/28/25 06:45 Dose: 100 mls/hr Documented By: GAMA Doxycycline Hyclate 100 mg/ (Sodium Chloride) 100 mls @ 100 mls/hr IV X1 ONE Stop: 03/28/25 07:22 Last Infusion: 03/28/25 07:52 Dose: Infused Documented By: Admin: 03/28/25 06:46 Dose: 100 mls/hr Documented By: GAMA same Consultations Consultation(s) initiated? (list below): No Diagnosis Shortness of Breath Differential Diagnosis: congestive heart failure, community acquired pneumonia and pulmonary embolism Most likely diagnosis given after review of the tests above:: Patient is a 84 year old female with a past medical history hypertension, hyperlipidemia, GERD, history of hernia, and history of metastatic ovarian cancer who presented to the emergency room with a chief complain of cough and shortness of breath that has been present since overnight on 03/28/2025. Patient's vitals on arrival noted for pyrexia of 101.4, non tachy, non tachypenic, saturating well on room air spO2 of 98%. Mild leukocytosis of 11.5 and anemia noted on CBC. CMP noted to have increase in BUN and Creatinine which was present on previous ER visits with Cr between 1.6-1.8, concern for CKD. Elevated BNP of 889 but no peripheral edema or jvd noted on physical exam. No crackles noted on physical exam. Chest x-ray noted for mild to moderate CHF. Superimposed pneuomina of right lung and 14 mm nodule on right pulmonary nodule. Patient diagnosed with pneumonia, likely viral given procalcitonin 0.09 with a lactic acid of 1.9. #Pneumonia #Pulmoanry Nodule, Follow up with CT outpatient - The patient's plan was discussed with attending Dr. Jorge Garcia MD PGY2 Internal Medicine Admission Indicated Admission indicated?: not indicated Explain why admission is indicated or not indicated:: Patient is hemo-dynamically stable saturating well on room air and no lactic acid noted on labs. Continue oral outpatient antibiotics. Admission Request Was there a request for admission?: No Disposition Plan Disposition Plan: Discharge Discharge Attestation Discharge Attestation: The patient and all family members were given an opportunity to ask questions and understood the discharge instructions. Discharge instructions specifically effects, indications for sooner follow up or return to the emergency department, and the expected course of current diagnosis. Patient condition: Stable Discharge Plan Plan Patient Disposition: HOME (Self Care) Patient condition on transfer: Stable Health Concerns: Instructions: -You have been diagnosed with pneumonia based on your labs and chest x-ray -Please complete 5 day course of antibiotics, doxycycline 100 mg twice daily. -Please use albuterol inhaler for shortness of breath. 2 puffs as needed ever 6 hrs as needed. -Please use a spacer to help deliver inhaler medication to back of your throat. 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 -Please have your primary doctor follow up with a possible CT chest, as a 14 mm nodule was noted on your upper right lobe. -Please follow up with your primary care provider within one week of discharge -If your symptoms worsen,please seek immediate medical attention and return to your nearest emergency room Prescriptions/Referrals Prescriptions/Med Rec: New doxycycline hyclate 100 mg capsule 100 mg PO BID 5 Days Qty: 10 0RF albuterol sulfate 90 mcg/actuation aerosol powdr breath activated 2 inh inhalation Q6H PRN (Reason: shortness of breath) 30 Days Qty: 1 0RF (DME) Henry Aerosol Hettinger Enhancer Spacer See Rx Instructions .Route Qty: 1 0RF Rx Instructions: As directed Continued hydralazine 100 mg Tablet 100 mg PO BID labetalol 100 mg Tablet 100 mg PO BID pantoprazole [Protonix] 40 mg tablet,delayed release (DR/EC) 40 mg PO QDAY Qty: 20 0RF ondansetron 4 mg tablet,disintegrating 4 mg PO Q8H PRN (Reason: nausea and vomiting) Qty: 10 0RF Discontinued losartan 50 mg Tablet 50 mg PO QDAY pioglitazone 30 mg Tablet 30 mg PO QDAY loratadine 10 mg capsule 10 mg PO QDAY PRN (Reason: allergy symptoms) Qty: 30 0RF prednisone 20 mg tablet See Taper PO QDAY Qty: 9 0RF Taper: Prednisone Taper 20 mg DAILY for 2 Days and 0 Hour 10 mg DAILY for 2 Days and 0 Hour 5 mg DAILY for 7 Days and 0 Hour meloxicam 7.5 mg tablet 7.5 mg PO QDAY Qty: 10 0RF Referrals: No Primary/Family,Physician [Primary Care Provider] - In 1 week Problem List Clinical Impression: Pneumonia Patient/Caregiver Discharge Instructions Education Materials: Inhaler Spacer Steps, ED Pneumonia (Adult) Additional Instructions: Follow up closely with your primary doctor in the next few days for recheck. Some general health principles that can help you are the [employer] principles: Nutrition (eat a plant-based diet, avoiding meats in general, avoiding highly processed foods) Exercise (Daily exercise/walks as tolerated) Water (Drink adequate fresh water to maintain hydration, concentrating on water rather than on soda, coffee, tea, juice, etc for hydration) [place] (Spend time - 15-20 minutes or so with skin exposed in the ent nurse and late evening sun for Vitamin D health benefits) [place] (Avoid alcohol, illicit drugs, caffeinated beverages, smoking, etc) Air (Deep breathing exercises in the early mornings in fresh air) Rest (Adequate rest at night, going to bed a few hours before midnight and avoiding all screens/television/loud music in the time right before going to bed, also avoiding heavy meals just prior to going to bed) Trust in God (Spend time daily in Bible study and prayer - health benefits in contemplation of God's true character) Additional resources that can benefit: www.[employer].Genbook, look under resources and seminars. Another good website is [email or web address] Print Language: Malaysian Stand Alone Forms: Daya Award Info., Patient Portal Info Letter
[2025-03-28 06:36] LABS: Bilirubin,Urine Negative (Negative); Blood,Urine Negative (Negative); Clarity,Urine Clear (Clear/Hazy); Color,Urine Yellow (Lt Yel-Yel); Culture Indicated,Urine Not Indicated; Glucose, Urine Negative (Negative); Ketones,Urine Negative (Negative); Leukocyte Esterase,Urine Negative (Negative); Nitrite,Urine Negative (Negative); PH,Urine 5.5 (5.0-7.0); Protein,Urine 2+ (Neg - Trace); RBC,Urine < 1 /hpf (0-3); Specific Gravity,Urine 1.018 (1.001-1.035); Urobilinogen,Urine Negative mg/dL (0.0-1.0); WBC,Urine < 1 /hpf (0-5)
[2025-03-28 06:45] LABS: Respiratory Syncytial Virus Ag Negative (Negative)
[2025-03-28] MEDS: ACETAMINOPHEN 325 MG TABLET PO (06:45)
[2025-03-28] MEDS: cefTRIAXone/D5w 1gm IV premix 1 GM/50 ML BAG IV (06:45)
[2025-03-28] MEDS: DOXYCYCLINE INJ 100 MG in SODIUM CHLORIDE 0.9% (POP) 100 ML IV (06:46)
[2025-03-28 06:47] LABS: B-Type Natriuretic Peptide 889 pg/mL (0-100)
[2025-03-28 06:59] LABS: Influenza A Ag Negative; Influenza B Ag Negative
[2025-03-28 07:01] LABS: Lactate (Lactic Acid) 1.9 mMol/L (0.4-2.0)
[2025-03-28] MEDS: ALBUTEROL/IPRATROPIUM (Duoneb) RT SOL 3 ML NEBU INH (07:33)
[2025-03-28 07:34] LABS: Procalcitonin 0.09 ng/ml (0.0-0.49)
[2025-03-28 14:12] LABS: Cocci Serology, IgM Negative (Negative)
[2025-03-29 10:16] LABS: Cocci Serology, IgG Negative (Negative)
== END 2025-03-28 09:22 | disposition home or self-care (01) ==
PROVIDERS: Emergency Medicine; Emergency Provider Family Medicine
DX: J18.9 Pneumonia, unspecified organism (principal); D64.9 Anemia, unspecified; E78.5 Hyperlipidemia, unspecified; I11.0 Hypertensive heart disease with heart failure
CPT/HCPCS: 36415; 71045; 80053; 81001; 83605; 83880; 84145; 84484; 85025; 86331; 86635; 87040; 87502; 87634; 87635; 93005; 94640; 96361; 96374; 99284; A9270; J0696; J3490